=== PATIENT | female | born 1960 | race Caucasian/White ===

== ENCOUNTER → 2016-07-31 | Outpatient (CLI) | payer BC ==
--- NOTE | 2016-08-01 10:13 | MRI ---
EXAM DESCRIPTION: Knee,Left CLINICAL HISTORY: KNEE COMPARISON: None Available. TECHNIQUE: MRI of the left knee is performed according to our usual protocol with multiplanar multi sequence imaging. FINDINGS: There is a small left knee joint effusion. There is a complex fluid collection anterior to the semimembranosus which I believe actually originates at the musculotendinous junction of the semimembranosus with articular side scuffing/partial-thickness tear of the semimembranosus. There is also an intraosseous component of this fluid collection in the posterior medial tibia. The fluid collection which is multilocular extends around the medial side of the joint subjacent to the MCL and represents a ganglion type cyst. Severe patellofemoral arthritis is present with extensive grade 4 chondrosis in the lateral articular facet of the patella and in the lateral aspect of the femoral trochlea. 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 TT TG interval is 17 mm. There is significant lateral subluxation of the patella on the order of about 8 to 10 mm. Extensive subchondral eburnation and reactive edema is present in the lateral aspect of the femoral trochlea. Medial and lateral compartment articular surfaces unremarkable. Cruciate and collateral ligaments and menisci are intact. IMPRESSION: 1. Severe patellofemoral arthritis likely secondary to tracking abnormality 2. Abnormal appearance of the articular side of the semimembranosus with likely related ganglion cyst extending subjacent to the MCL with a small intraosseous component in the posterior medial tibial plateau Electronically signed by: Sam Borjas MD 08/01/2016 10:13 AM CDT
== END | disposition home or self-care (01) ==
LOC: MRI 13:15
PROVIDERS: ATTEND Family Medicine
DX: M17.12 Unilateral primary osteoarthritis, left knee (principal)

== ENCOUNTER → 2016-09-19 | Outpatient (CLI) | payer BC | END | disposition home or self-care (01) | LOC: LAB.O 11:20 | PROVIDERS: ATTEND Family Medicine | DX: Z12.31 Encounter for screening mammogram for malignant neoplasm of breast (principal); L65.9 Nonscarring hair loss, unspecified; R53.82 Chronic fatigue, unspecified; D50.9 Iron deficiency anemia, unspecified | CPT/HCPCS: 82607; 82627; 82728; 83540; 83550; 84146; 84403; 84443; G0202 ==

== ENCOUNTER → 2016-11-01 | Outpatient (CLI) | payer BC | END | disposition home or self-care (01) | LOC: GMAL 11:50 | PROVIDERS: ATTEND Family Medicine | DX: D53.9 Nutritional anemia, unspecified (principal) ==

== ENCOUNTER → 2017-12-05 | Outpatient (CLI) | payer BC ==
--- NOTE | 2017-12-05 16:58 | US ---
EXAM DESCRIPTION: Breast,Left: Ultrasound CLINICAL HISTORY: 57 yearsFemaleABNORMAL MAMMO . Patient states she has had skin discoloration over extremities and trunk all of her life. COMPARISON: Digital diagnostic mammogram left breast on this visit. TECHNIQUE: Transcutaneous scanning of the left breast utilizing rome-scale and Doppler modes. Scanning performed by the [employer] worker and Dr. Warren. FINDINGS: Scanning of the inferior anterior left breast at the 500 and 600 clock sectors. 5 cm from the nipple, to the nipple. Mostly fatty echotexture with heterogeneous fibroglandular tissues. Also small segments of ducts are present. No distinct solid mass or cyst. No large calcifications or parenchymal edema. Overlying skin shows redness (patient says this is normal). No abnormal vascularity. IMPRESSION: 1. Bi-Rads Category 2: Benign. 2. Please refer to left breast digital diagnostic mammography on this visit. The FINDINGS and the FOLLOW-UP plan were reviewed in person with the patient after the examination. Written communication explaining the IMPRESSION and FOLLOW-UP will be mailed to the patient and referring care provider. Electronically signed by: Surinder Warren MD 12/05/2017 4:57 PM CDT
--- NOTE | 2017-12-06 10:33 | MAM ---
EXAM DESCRIPTION: 3D Diagnostic, Left: Digital Mammography CLINICAL HISTORY: 57 yearsFemaleABNORMAL MAMMO . Focal asymmetry lower outer quadrant anterior left breast.. COMPARISON: Bilateral screening digital breast tomosynthesis 11/20/2017.. . TECHNIQUE: Right breast LM projection full-field images, digital mammographic tomosynthesis technique. Digital spot compression tomosynthesis the region of interest in the CC and LM projections. CAD not utilized. FINDINGS: The breast parenchymal density pattern is: Scattered areas of fibroglandular density. No skin thickening or nipple retraction the focal asymmetry in the left breast at the 500 clock position 4 cm from the nipple is not well seen after spot compression. No abnormal microcalcifications. Ultrasound: Scanning of the inferior anterior left breast at the 500 and 600 clock sectors. 5 cm from the nipple, to the nipple. Mostly fatty echotexture with heterogeneous fibroglandular tissues. Also small segments of ducts are present. No distinct solid mass or cyst. No large calcifications or parenchymal edema. Overlying skin shows redness (patient says this is normal). No abnormal vascularity. IMPRESSION: Benign exam. BIRAD CATEGORY: 2 BENIGN FINDINGS. RECOMMENDATIONS: FOLLOW UP: Return to routine digital bilateral screening, one year interval from October 2017. Written communication explaining the IMPRESSION and follow-up, will be mailed to the patient and referring health care provider. According to the [employer], yearly mammograms are recommended starting at age 40 and continuing as long as a woman is in good health. Any breast change noted on a breast self-exam should be reported promptly to the patient's healthcare provider. Breast MRI is recommended for women with an approximately 20-25% or greater lifetime risk of breast cancer, including women with a strong family history of breast or ovarian cancer and women who have been treated for Hodgkin's disease. A negative mammographic report should not delay tissue diagnosis in patients with significant clinical history or physical findings. Extremely dense breast tissue limits the sensitivity of digital mammography. Electronically signed by: Surinder Warren MD 12/06/2017 10:32 AM CDT
== END ==
LOC: MAMMO 10:54
PROVIDERS: ATTEND Family Medicine
DX: R92.8 Other abnormal and inconclusive findings on diagnostic imaging of breast (principal)
CPT/HCPCS: 76641; 77065; G0279

== ENCOUNTER → 2018-03-14 | Outpatient (CLI) | payer BC | LOC: GMAL 10:16 | PROVIDERS: ATTEND Family Medicine | DX: Z00.00 Encounter for general adult medical examination without abnormal findings (principal) ==

== ENCOUNTER → 2018-03-18 | Outpatient (CLI) | payer BC | LOC: GMAL 10:51 | PROVIDERS: ATTEND Family Medicine | DX: M25.50 Pain in unspecified joint (principal) ==

== ENCOUNTER → 2019-07-15 | Outpatient (CLI) | payer BC ==
--- NOTE | 2019-07-15 08:35 | RAD ---
EXAM DESCRIPTION: Pelvis CLINICAL HISTORY: 59 years Female, HIP PAIN COMPARISON: None. FINDINGS: Single view of the pelvis to include both hips demonstrates both hips intact without evidence of fracture or dislocation or severe asymmetric hip degenerative arthropathy. The symphysis pubis and SI joints are intact. No fracture or dislocation or soft tissue mass is identified. IMPRESSION: Normal pelvis one view. Electronically signed by: Chris White MD 07/15/2019 8:33 AM CDT
--- NOTE | 2019-07-15 08:37 | RAD ---
EXAM DESCRIPTION: Knee,Left Complete CLINICAL HISTORY: 59 years, Female, KNEE PAIN COMPARISON: None TECHNIQUE: Four views left knee FINDINGS: Four views left knee demonstrate significant lateral subluxation of the patella and narrowing of the lateral patellofemoral joint. Small joint effusion in the suprapatellar bursal region is suspected. Marginal osteophyte formation the lateral joint compartment of the knee is noted with preservation of joint space and more normal appearance medially. Fibular head as well as proximal tibial shaft and distal femoral shaft appear intact. IMPRESSION: 1. Small joint effusion with advanced lateral compartment patellofemoral arthropathy and lateral subluxation with milder changes involving the lateral femorotibial joint space. 2. No acute fracture or dislocation noted. Electronically signed by: Chris White MD 07/15/2019 8:35 AM CDT
== END ==
LOC: RAD 07:47
PROVIDERS: ATTEND Orthopaedic Surgery
DX: S83.012A Lateral subluxation of left patella, initial encounter (principal); M25.462 Effusion, left knee; M12.862 Other specific arthropathies, not elsewhere classified, left knee; M25.552 Pain in left hip

== ENCOUNTER → 2019-10-15 | Outpatient (CLI) | payer BC ==
--- NOTE | 2019-10-15 19:07 | MRI ---
EXAM DESCRIPTION: Cervical Spine: MRI. CLINICAL HISTORY: 59 years Female CERVICAL DISC DISORDER WITH RADICULOPATHY COMPARISON: None. TECHNIQUE: Multiplanar, high-field MRI, multiple sequences, non-contrast Cervical spine.. Technically difficult study due to patient motion and swallowing. FINDINGS: C3-C4: Disc desiccation mild anterior reactive changes and bulging disc. Posterior broad-based disc bulge abutting the cord. Bilateral uncinate spurs. Bilateral neural foraminal narrowing moderate on the right. Hypertrophic spur right facet. Mild to moderate canal narrowing. C4-C5: Disc desiccation with disc space loss anterior disc bulging and spurs. Bilateral uncinate spurs larger on the left. Mild to moderate right neural foraminal narrowing and moderate to severe left neural foraminal narrowing. Mild canal narrowing. C5-C6: Moderate disc space loss. Anterior disc bulge and endplate ridging. Posterior broad-based disc bulge abutting the cord. Borderline mild central canal stenosis. Hypertrophic changes in the posterior ligaments and facet joints bilaterally. Left uncinate spur. Moderate to severe right neural foraminal narrowing and borderline left neural foraminal stenosis. C6-C7: Disc desiccation and minimal disc space loss. Posterior broad-based disc bulge. Tiny bilateral uncinate spurs. Degenerative hypertrophy of the facet joints and ligaments. Moderate central canal narrowing with moderate to severe left neural foraminal narrowing and mild to moderate right neural foraminal narrowing. C7-T1: Disc is unremarkable and disc space preserved. No canal narrowing. Bilateral mild facet arthrosis. Mild left neural foraminal narrowing. Normal signal in the C2-C3 disc and T1-T2 disc with no bulging. Disc spaces preserved. Canal and neural foramina are patent. Facet joints unremarkable. Spinal alignment showing mild kyphosis C2-C4.. No cord compression or cord edema. Atlantoaxial joint with slight widening and effusion. Base of the cerebellar tonsils is just above the foramen magnum. Paravertebral soft tissues are negative.. Vertebral bodies are not compressed at any level. Normal marrow signal in the remaining vertebral bodies and the posterior elements. IMPRESSION: 1. Multiple levels of the desiccated discs with bulging. Multi levels. Facet arthrosis and ligament hypertrophy. 2. Moderate to severe left neural foraminal narrowing at C4-C5. Correlate for left C5 radiculopathy. 3. Multifactorial borderline mild central canal stenosis at C5-C6. Borderline left neural foraminal stenosis; correlate for left C6 radiculopathy. 4. Moderate to severe left neural foraminal narrowing at C6-C7. Correlate for left C7 radiculopathy. Electronically signed by: Surinder Warren MD 10/15/2019 7:06 PM CDT
== END ==
LOC: MRI 08:51
PROVIDERS: ATTEND Family Medicine
DX: M50.122 Cervical disc disorder at C5-C6 level with radiculopathy (principal); M50.30 Other cervical disc degeneration, unspecified cervical region; M48.02 Spinal stenosis, cervical region

== ENCOUNTER → 2019-10-27 | Outpatient (CLI) | payer BC | LOC: GMAL 14:06 | PROVIDERS: ATTEND Family Medicine | DX: Z00.01 Encounter for general adult medical examination with abnormal findings (principal); E53.8 Deficiency of other specified B group vitamins; E55.9 Vitamin D deficiency, unspecified; Z79.899 Other long term (current) drug therapy ==